=== PATIENT | male | born 1955 | race Caucasian/White ===

== ENCOUNTER → 2021-04-02 | Outpatient (CLI) | payer OTHER | LOC: MRI 04-01 14:30 | DX: D32.0 Benign neoplasm of cerebral meninges (principal) | CPT/HCPCS: 36415; 70553; 82565; 84520; A9577 ==

== ENCOUNTER → 2021-07-24 | Outpatient (CLI) | payer OTHER | LOC: EXRD 08:22 | DX: R05.9 Cough, unspecified (principal) | CPT/HCPCS: 71046 ==

== ENCOUNTER → 2021-08-28 | Outpatient (CLI) | payer OTHER | LOC: ECHO 08:56 → CT 10:30 | DX: R05.9 Cough, unspecified (principal); R09.89 Other specified symptoms and signs involving the circulatory and respiratory systems; Z01.812 Encounter for preprocedural laboratory examination | CPT/HCPCS: ECHO; 36415; 71275; 82565; 84520; 93306; Q9967 ==

== ENCOUNTER → 2021-09-03 | Outpatient (CLI) | payer OTHER | LOC: HEART 5 14:12 | DX: J45.991 Cough variant asthma (principal) | CPT/HCPCS: 94010; 95012 ==

== ENCOUNTER → 2021-09-04 | Outpatient (CLI) | payer OTHER | LOC: EXRD 09:04 | DX: M25.572 Pain in left ankle and joints of left foot (principal); M19.072 Primary osteoarthritis, left ankle and foot | CPT/HCPCS: 73610 ==

== ENCOUNTER → 2021-09-18 | Day surgery (SDC) | payer OTHER ==
[~2021-09-18] MED LIST: COZAAR 50MG TAB50 MG PO; CRESTOR 10 MG T10 MG GT; FLOVENT HFA12 G1 INH; MONTELUKAST SOD10 MG PO; NEXIUM OTC PO; TADALAFIL5 MG PO; VITAMIN D31250 MCG PO
== END | disposition home or self-care (01) ==
LOC: OR 07:36
DX: K21.00 Gastro-esophageal reflux disease with esophagitis, without bleeding (principal); K31.9 Disease of stomach and duodenum, unspecified; K31.7 Polyp of stomach and duodenum; K29.60 Other gastritis without bleeding; R05.3 Chronic cough; G47.33 Obstructive sleep apnea (adult) (pediatric); I10 Essential (primary) hypertension; E78.00 Pure hypercholesterolemia, unspecified; E66.01 Morbid (severe) obesity due to excess calories; Z68.39 Body mass index [BMI] 39.0-39.9, adult; Z88.0 Allergy status to penicillin; Z88.8 Allergy status to other drugs, medicaments and biological substances
CPT/HCPCS: J2704; J7040

== ENCOUNTER → 2021-10-09 | Outpatient (CLI) | payer OTHER | LOC: MRI 10-07 10:00 | DX: D32.0 Benign neoplasm of cerebral meninges (principal); R90.89 Other abnormal findings on diagnostic imaging of central nervous system | CPT/HCPCS: 36415; 70553; 82565; 84520; A9577 ==